=== PATIENT | female | born 1995 | race Caucasian/White ===

== ENCOUNTER 2022-08-18 08:07 | Day surgery (SDC) | payer BC, OTHER ==
[~2022-08-18 08:07] MED LIST: Dexamethasone 4 MG/ML 5 ML MDV ONE; Famotidine 20 MG/2 ML SDV ONE; Indocyanine Green 25 MG SDV ONE; Lactated Ringers 1,000 ML IV SCH; Lidocaine 2% 11 ML Jelly Filled Syringe ONE; Ondansetron 4 MG/2 ML SDV ONE; Propofol 200 MG/20 ML SDV ONE; Rocuronium Bromide 50 MG/5 ML Syringe ONE; Ropivacaine 0.5% 5 MG/ML 30 ML SDV ONE; Water For Injection, Sterile 20 ML ONE; cefOXitin 2 GM in Premix Bag 1 BAG IV ONE; fentaNYL 100 MCG/2 ML SDV ONE
[2022-08-18] MEDS ORDERED: Scopolamine 1.5 MG Transdermal Patch TRDERM PRN (08:30)
[2022-08-18] MEDS ORDERED: HYDROmorphone 1 MG/ML Syringe IVPUSH PRN (08:40)
[2022-08-18] MEDS ORDERED: fentaNYL 50 MCG/ML SDV IVPUSH PRN (08:40)
[2022-08-18] MEDS ORDERED: Metoclopramide 10 MG/2 ML SDV IVPUSH PRN (08:40)
[2022-08-18] MEDS ORDERED: Morphine 2 MG/ML SYRINGE IVPUSH PRN ×2 (08:40→11:11)
[2022-08-18] MEDS ORDERED: Ondansetron 4 MG/2 ML SDV IVPUSH PRN (08:40)
[2022-08-18] MEDS ORDERED: Naloxone 0.4 MG/ML SDV IVPUSH PRN (08:40)
[2022-08-18] MEDS ORDERED: Albuterol 0.083% 2.5 MG/3 ML Neb Soln NEB PRN (08:40)
[2022-08-18] MEDS ORDERED: Propofol 200 MG/20 ML SDV ONE ×2 (08:56→10:28)
[2022-08-18] MEDS ORDERED: Bupivacaine 0.5% 30 ML SDV ONE (09:04)
[2022-08-18] MEDS ORDERED: fentaNYL 250 MCG/5 ML SDV ONE (09:55)
[2022-08-18] MEDS ORDERED: Sugammadex Sodium 200 MG/2 ML VIAL ONE (10:28)
[2022-08-18] MEDS ORDERED: Ketorolac 30 MG/ML SDV ONE (10:28)
[2022-08-18] MEDS ORDERED: HYDROmorphone 2 MG/ML Syringe ONE (10:59)
[2022-08-18] MEDS ORDERED: Acetaminophen/HYDROcodone 325-5 MG Tab PO PRN ×2 (11:11→11:19)
[2022-08-18] MEDS ORDERED: Lactated Ringers 1,000 ML IV SCH (11:15)
== END 2022-08-18 13:42 | disposition home or self-care (01) ==
LOC: MW.SDS 08:07
PROVIDERS: ATTEND Surgery
DX: K80.12 Calculus of gallbladder with acute and chronic cholecystitis without obstruction (principal); E66.01 Morbid (severe) obesity due to excess calories; Z68.41 Body mass index [BMI] 40.0-44.9, adult; Z79.899 Other long term (current) drug therapy; Z90.49 Acquired absence of other specified parts of digestive tract; Z98.890 Other specified postprocedural states; Z20.822 Contact with and (suspected) exposure to COVID-19
CPT/HCPCS: 47562; 81025; A9270; J0131; J1100; J1885; J2704; J2795; J3010; J3490; J7030; J7120; 00790; 64488; J1170; J2405